=== PATIENT | female | born 1995 | race Two or more races ===

== ENCOUNTER 2017-10-14 04:37 | Emergency (ER) | payer SELFPAY ==
[~2017-10-14] VITALS: Ht 162.6 cm; Wt 69.5 kg
[2017-10-14] MEDS ORDERED: ONDANSETRON 2MG/ML, 2ML ONE ×2 (05:24→07:38)
[2017-10-14] MEDS ORDERED: KETOROLAC 30 MG/1 ML ONE (05:24)
[2017-10-14] MEDS ORDERED: ONDANSETRON 2MG/ML, 2ML IVPush ONE ×2 (05:30→07:30)
[2017-10-14] MEDS ORDERED: KETOROLAC 30 MG/1 ML IVPush ONE (05:30)
[2017-10-14] MEDS ORDERED: SODIUM CHLORIDE FLUSH 10ML SYR IVF ONE (05:30)
[2017-10-14] MEDS ORDERED: SODIUM CHLORIDE 0.9% 1,000ML IVBOLUS ONE ×2 (05:30→07:30)
[2017-10-14 05:46] LABS: RAPID INFLUENZA A Negative (Negative); RAPID INFLUENZA B Negative (Negative)
[2017-10-14 06:25] LABS: ASPARTATE AMINO TRANSFERASE 12 U/L (15-37); BLOOD UREA NITROGEN 9 mg/dL (7-18)
[2017-10-14 06:39] LABS: PATH.CAST-FLAG NOT PRESENT; SPERM-FLAG NOT PRESENT; SRC-FLAG NOT PRESENT; XTAL-FLAG NOT PRESENT; YLC-FLAG NOT PRESENT
[2017-10-14 06:52] LABS: HEMOGLOBIN 12.7 g/dL (11.7-16.4); WHITE BLOOD COUNT 11.5 x10^3/uL (4.5-13.2)
[2017-10-14] MEDS ORDERED: methylPREDNISolone SOD SUCC 125 MG/2 ML IVPush SCH (07:00)
[2017-10-14] MEDS ORDERED: methylPREDNISolone SOD SUCC 125 MG/2 ML ONE (07:11)
[2017-10-14] MEDS ORDERED: MORPHINE SULFATE 4 MG/ML, 1ML IVPush PRN (07:30)
[2017-10-14] MEDS ORDERED: MORPHINE SULFATE 4 MG/ML, 1ML ONE (07:38)
[2017-10-14 08:10] VITALS: BP 127/68
== END 2017-10-14 08:12 | disposition home or self-care (01) ==
LOC: ED 08:10
DX: R10.84 Generalized abdominal pain (principal)
CPT/HCPCS: 36415; 71010; 80053; 81001; 82550; 83605; 84703; 85025; 85651; 87040; 87081; 87086; 87400; 87880; 93005; 96361; 96374; 96375; 99285; J1885; J2405; J2930; J7030